=== PATIENT | female | born 1960 | race Caucasian/White ===

== ENCOUNTER 2017-05-05 18:36 | Emergency (ER) | payer MEDICAID ==
[~2017-05-05] VITALS: Ht 165.1 cm; Wt 83.0 kg
[~2017-05-05 18:36] MED LIST: ACYC-1 PO; CITA20TA2 PO; DICY20TA33 PO; DOCU100C41 PO; GABA-532 PO; LEVO137T24 PO; LORA-269 PO; TRAM50TA2 PO; ZOLP10TA PO
[2017-05-05 18:38] VITALS: BP 138/87
[2017-05-05] MEDS ORDERED: diazepam 5mg tablet PO ONE (18:50)
[2017-05-05] MEDS ORDERED: ketorolac tromethamine 15mg/ml inj. IM ONE (18:50)
[2017-05-05] MEDS ORDERED: METH-360 PO (19:36)
== END 2017-05-05 19:44 | disposition home or self-care (01) ==
LOC: ER 18:36
DX: M94.0 Chondrocostal junction syndrome [Tietze] (principal); K21.9 Gastro-esophageal reflux disease without esophagitis; M19.90 Unspecified osteoarthritis, unspecified site; Z88.8 Allergy status to other drugs, medicaments and biological substances; Z79.899 Other long term (current) drug therapy
CPT/HCPCS: 71046; 96372; 99284; J1885

== ENCOUNTER 2018-05-23 06:10 | Emergency (ER) | payer MEDICAID ==
[~2018-05-23] VITALS: Ht 162.6 cm; Wt 75.0 kg
[~2018-05-23 06:10] MED LIST changes: +METH-360 PO
[2018-05-23 06:20] VITALS: BP 131/85
[2018-05-23] MEDS ORDERED: HYDROcodone/acetaminophen 5mg/325mg tablet PO ONE (06:35)
[2018-05-23] MEDS ORDERED: ketorolac trometh inj. 60 MG/2 ML VIAL IM ONE (06:35)
[2018-05-23] MEDS ORDERED: TRAM50TA2 PO (07:22)
== END 2018-05-23 08:04 | disposition home or self-care (01) ==
LOC: ER 06:11
DX: M25.511 Pain in right shoulder (principal); K21.9 Gastro-esophageal reflux disease without esophagitis; E07.9 Disorder of thyroid, unspecified; M19.90 Unspecified osteoarthritis, unspecified site; Z98.890 Other specified postprocedural states; Z88.8 Allergy status to other drugs, medicaments and biological substances; Z79.899 Other long term (current) drug therapy
CPT/HCPCS: 73030; 96372; 99283; J1885

== ENCOUNTER 2019-10-03 18:40 | Emergency (ER) | payer MEDICAID ==
[~2019-10-03] VITALS: Ht 162.6 cm; Wt 82.3 kg
[2019-10-03 20:07] VITALS: BP 104/79
== END 2019-10-03 22:04 | disposition home or self-care (01) ==
LOC: ER 18:42
DX: I95.9 Hypotension, unspecified (principal); R55 Syncope and collapse; R42 Dizziness and giddiness; K21.9 Gastro-esophageal reflux disease without esophagitis; M19.90 Unspecified osteoarthritis, unspecified site; Z90.49 Acquired absence of other specified parts of digestive tract; Z90.89 Acquired absence of other organs; Z98.890 Other specified postprocedural states; Z88.5 Allergy status to narcotic agent; Z88.8 Allergy status to other drugs, medicaments and biological substances; Z79.899 Other long term (current) drug therapy
CPT/HCPCS: 99281; 99282

== ENCOUNTER 2022-02-19 14:13 | Emergency (ER) | payer MEDICAID ==
[~2022-02-19] VITALS: Ht 162.6 cm; Wt 78.0 kg
[2022-02-19 14:18] VITALS: BP 127/74
[2022-02-19] MEDS ORDERED: HYDROcodone/acetaminophen 10/325mg tab PO ONE (16:15)
[2022-02-19] MEDS ORDERED: ondansetron 4mg rapidly disintigrating tab PO ONE (16:15)
[2022-02-19] MEDS ORDERED: metroNIDAZOLE 500mg tablet PO ONE (16:15)
[2022-02-19] MEDS ORDERED: amox tr/potassium clavulanate 875/125mg TAB PO ONE (16:15)
[2022-02-19] MEDS ORDERED: METR-159 PO (16:21)
[2022-02-19] MEDS ORDERED: HYDR-3964 PO (16:21)
[2022-02-19] MEDS ORDERED: AMOX-117 PO (16:21)
== END 2022-02-19 16:51 | disposition home or self-care (01) ==
LOC: ER 14:13
DX: K04.7 Periapical abscess without sinus (principal); K21.9 Gastro-esophageal reflux disease without esophagitis; G89.29 Other chronic pain; E03.9 Hypothyroidism, unspecified; Z90.49 Acquired absence of other specified parts of digestive tract; Z98.890 Other specified postprocedural states; Z79.899 Other long term (current) drug therapy; Z88.6 Allergy status to analgesic agent; Z88.5 Allergy status to narcotic agent; Z79.1 Long term (current) use of non-steroidal anti-inflammatories (NSAID)
CPT/HCPCS: 99284

== ENCOUNTER 2024-01-21 16:46 | Emergency (ER) | payer MEDICAID ==
[~2024-01-21] VITALS: Ht 162.6 cm; Wt 72.7 kg
[2024-01-21] MEDS: HYDROcodone/acetaminophen 5mg/325mg tablet PO ONE (18:34)
[2024-01-21 18:47] VITALS: BP 132/68; PULSE 74; RESP 18; TEMP 98.8; O2SAT 99
== END 2024-01-21 18:49 | disposition home or self-care (01) ==
LOC: ER 16:46
DX: S40.022A Contusion of left upper arm, initial encounter (principal); S80.02XA Contusion of left knee, initial encounter; K21.9 Gastro-esophageal reflux disease without esophagitis; M19.90 Unspecified osteoarthritis, unspecified site; M79.7 Fibromyalgia; Z88.5 Allergy status to narcotic agent; Z88.6 Allergy status to analgesic agent; Z88.8 Allergy status to other drugs, medicaments and biological substances; Z79.899 Other long term (current) drug therapy; Z90.49 Acquired absence of other specified parts of digestive tract; Z90.89 Acquired absence of other organs; W19.XXXA Unspecified fall, initial encounter; Y93.89 Activity, other specified; Y92.89 Other specified places as the place of occurrence of the external cause; Y99.8 Other external cause status
CPT/HCPCS: 73060; 73090; 73564; 99284

== ENCOUNTER 2025-01-29 12:30 | Outpatient (CLI) | payer MEDICAID ==
[~2025-01-29 12:30] MED LIST changes: -ACYC-1 PO; +PANT-47 PO; +POTA-207 PO; +ROSU20TA98 PO; +ZOLP-679 PO; -ZOLP10TA PO
--- NOTE | 2025-01-29 16:49 | RADIOLOGY REPORT ---
EXAM: CT CT MASTOIDS/EAR HISTORY: TINNITUS, UNSPECIFIED EAR TECHNIQUE: Thin section axial and coronal CT scan through the temporal bones was obtained. This exam was performed according to our departmental dose optimization program. Up-to-date CT equipment and radiation dose reduction techniques are utilized as appropriate. COMPARISON: None FINDINGS: RIGHT: The external auditory canal, both the cartilaginous and bony segments are patent. The tympanic membrane is intact. The scutum and ossicular chain are intact. The epitympanic space, Prussak's space, mesotympanum and hypotympanum are all patent. The otic capsule is normal in appearance. The tegmen tympani is intact. The labyrinthine, geniculate, tympanic, and mastoid portions of nerve VII are all unremarkable. The cochlea demonstrates a normal 2-1/2 turns. A normal bony roof over the superior semicircular canal is demonstrated. The vestibular apparatus and semicircular canals are all unremarkable. The internal auditory canal is patent. The vestibular aqueduct is of normal caliber. Trace right mastoid air cell effusion. The jugular foramen is normal in appearance. LEFT: The external auditory canal, both the cartilaginous and bony segments are patent. The tympanic membrane is intact. The scutum and ossicular chain are intact. The epitympanic space, Prussak's space, mesotympanum and hypotympanum are all patent. The otic capsule is normal in appearance. The tegmen tympani is intact. The labyrinthine, geniculate, tympanic, and mastoid portions of nerve VII are all unremarkable. The cochlea demonstrates a normal 2-1/2 turns. A normal bony roof over the superior semicircular canal is demonstrated. The vestibular apparatus and semicircular canals are all unremarkable. The internal auditory canal is patent. The vestibular aqueduct is of normal caliber. Small left mastoid air cell effusion. There some coalescence of posterior left mastoid air cells on series 4, image 98. The jugular foramen is normal in appearance. Paranasal sinus mucosal thickening up to moderate in the ethmoid air cells. Scattered mucous retention cysts or polyps in the right frontal, left maxillary, and left sphenoid sinuses. Prior ocular lens replacement. The bony skull base is intact. The petrous apices are normal in appearance. No fluid collection or soft tissue gas particularly within or adjacent to the left mastoid air cells IMPRESSION: 1. Left mastoiditis. No fluid collection to suggest abscess. 2. Small right mastoid air cell effusion. 3. Otherwise unremarkable structures of the internal auditory canal bilaterally. 4. Paranasal sinus mucosal thickening Up to moderate in the ethmoid air cells likely inflammatory. Correlate clinically for acute sinusitis.
== END 2025-01-29 23:59 | disposition home or self-care (01) ==
LOC: RAD 12:30
PROVIDERS: ATTEND Family Medicine
DX: H70.891 Other mastoiditis and related conditions, right ear (principal); J32.2 Chronic ethmoidal sinusitis; H70.892 Other mastoiditis and related conditions, left ear
CPT/HCPCS: 70480